=== PATIENT | female | born 2000 | race Hispanic/Latino ===

== ENCOUNTER 2024-02-04 13:28 | Inpatient (IN) | payer OTHER ==
[2024-02-04 21:18] VITALS: BMI 42.8
[2024-02-05] MEDS ORDERED: Bupivacaine/Epinephrine 0.25% 30 ML VIAL ONE (12:00)
[2024-02-05] MEDS ORDERED: Ibuprofen 800 MG TAB ONE (21:09)
[2024-02-06] MEDS ORDERED: Acetaminophen 500 MG TAB ONE (07:42)
== END 2024-02-06 15:30 | disposition home or self-care (01) | DRG 807 ==
LOC: CSHLD 19:52 → CSHPED 02-05 22:16
PROVIDERS: ADMIT Family Medicine; ATTEND Family Medicine
PROC: 10E0XZZ Delivery of Products of Conception, External Approach (ICD-10-PCS; principal; 2024-02-04)
PROC: 0UQMXZZ Repair Vulva, External Approach (ICD-10-PCS; 2024-02-04)
DX: O71.82 Other specified trauma to perineum and vulva (principal); Z37.0 Single live birth; Z3A.39 39 weeks gestation of pregnancy
CPT/HCPCS: 51702